=== PATIENT | female | born 1985 | race Hispanic/Latino ===

== ENCOUNTER 2017-12-03 15:27 | Emergency (ER) | payer OTHER, BC ==
[2017-12-03 15:52] VITALS: BP 116/77; PULSE 76; RESP 16; TEMP 98.3; O2SAT 99
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
== END 2017-12-03 19:16 | disposition home or self-care (01) ==
LOC: H.ER 15:27
DX: M54.5 Low back pain (principal); V49.60XA Unspecified car occupant injured in collision with unspecified motor vehicles in traffic accident, initial encounter

== ENCOUNTER 2018-06-21 17:39 | Emergency (ER) | payer BC, OTHER ==
[2018-06-21 17:47] VITALS: BMI 26.1
[2018-06-21 20:12] LABS: BASO # 0.1 K/uL (0.0-0.2); BASO % 0.4 % (0.0-2.0); EOS # 0.1 K/uL (0.0-0.7); EOS % 0.6 % (0.0-4.0); HEMOGLOBIN 12.9 g/dL (12.0-16.0); LYMPH # 3.1 K/uL (1.0-4.3); LYMPH % 19.6 % (20.0-40.0); MEAN CELL VOLUME 92.9 fl (81.0-99.0); MEAN CORPUSCULAR HEMOGLOBIN 30.5 pg (27.0-31.0); MEAN CORPUSCULAR HGB CONC 32.8 g/dL (33.0-37.0); MEAN PLATELET VOLUME 8.4 fl (7.2-11.7); MONO # 0.8 K/uL (0.0-0.8); MONO % 5.3 % (0.0-10.0); NEUT # 11.9 K/uL (1.8-7.0); NEUT % 74.1 % (50.0-75.0); RBC 4.22 Mil/uL (3.80-5.20); RED CELL DISTRIBUTION WIDTH 13.3 % (11.5-14.5)
--- NOTE | 2018-06-21 20:27 | ED PDOC ---
HPI: Skin/Bite Injury Time Seen by Provider: 06/21/18 19:06 Chief Complaint (Nursing): Abnormal Skin Integrity Chief Complaint (Provider): Abnormal Skin Integrity History Per: Patient History/Exam Limitations: no limitations Onset/Duration Of Symptoms: Days (x1 month ) Current Symptoms Are (Timing): Still Present Location Of Injury: Left: Back Quality Of Symptoms: Painful, Swollen Additional Complaint(s): 32 year female with no significant past medical history presents to the ED with left sided abscess. Patient states she began noticing pimple on left side of back 1 month ago. Today it became larger and redness and pain increased. Her friend attempted to pop the pimple and was able to release some pus. Patient reports chills last night, but denies any fever or back sweats. She has not taken any medications for pain. PMD: none provided Past Medical History Reviewed: Historical Data, Nursing Documentation, Vital Signs Vital Signs: Last Vital Signs Temp 99 F 06/21/18 17:44 Pulse 103 H 06/21/18 17:44 Resp 16 06/21/18 17:44 BP 119/77 06/21/18 17:44 Pulse Ox 97 06/21/18 17:44 - Medical History PMH: No Chronic Diseases - Family History Family History: States: Unknown Family Hx - Home Medications Home Medications: Ambulatory Orders Medication Instructions Recorded Ibuprofen [Motrin Tab] 600 mg PO Q8H PRN #20 tab 03/16/14 Ibuprofen [Motrin Tab] 800 mg PO Q6H PRN #20 tab 12/03/17 Clindamycin [Cleocin] 450 mg PO TID 7 Days cap 06/21/18 Ibuprofen [Motrin Tab] 600 mg PO Q6 PRN 7 Days tab 06/21/18 - Allergies Allergies/Adverse Reactions: Allergies Allergy/AdvReac Type Severity Reaction Status Date / Time No Known Allergies Allergy Verified 06/21/18 17:50 Review of Systems ROS Statement: Except As Marked, All Systems Reviewed And Found Negative Constitutional: Positive for: Chills. Negative for: Fever, Sweats Skin: Positive for: Other (abcess on left back) Physical Exam - Reviewed Nursing Documentation Reviewed: Yes Vital Signs Reviewed: Yes - Physical Exam Appears: Positive for: No Acute Distress Eye Exam: Positive for: Normal appearance Back: Positive for: Other (left back with comedone with associated 6 by 3 cm erythema with induration, no fluctuance, and no drainage noted) Extremity: Positive for: Normal ROM (upper and lower). Negative for: Deformity Neurological/Psych: Positive for: Awake, Alert, Oriented (x3) - Laboratory Results Result Diagrams: 06/21/18 20:00 06/21/18 20:00 - ECG O2 Sat by Pulse Oximetry: 97 (RA) Pulse Ox Interpretation: Normal Medical Decision Making Medical Decision Making: Time: 1922 Plan: --BMP --CBC --Blood cultures WBCs 16K, pt afebrile, IV Clindamycin 600mg x 1 ordered. Re-evaluated: HR improved to 76. Pt given return instructions to come back to ER in 2 days for re-evaluation and to use warm compresses 2 - 3 times per day. Return instructions provided. -------- --------- ScribeAttestation: Documented byMargarita Smith, acting as a scribe for Rhonda Goodson PA-C. Provider ScribeAttestation: All medical record entries made by the Scribe were at my direction and personally dictated by me. I have reviewed the chart and agree that the record accurately reflects my personal performance of the history, physical exam, medical decision making, and the department course for this patient. I have also personally directed, reviewed, and agree with the discharge instructions and disposition. Disposition - Clinical Impression Clinical Impression: Abscess - Patient ED Disposition Is Patient to be Admitted: No Counseled Patient/Family Regarding: Studies Performed, Diagnosis, Need For Followup - Disposition Referrals: Amari Sands MD [Medical Doctor] - Disposition: Routine/Home Disposition Time: 23:48 Condition: STABLE Additional Instructions: Use warm compresses on area 2 - 3 days to see if it can soften as there is nothing to drain currently. Take antibiotics as prescribed and complete the full course. Take Ibuprofen or Tylenol for the pain. Return to ER in 2 - 3 days for re-evaluation or sooner if you develop fevers, worsening redness or pain. Prescriptions: Clindamycin [Cleocin] 450 mg PO TID 7 Days cap Ibuprofen [Motrin Tab] 600 mg PO Q6 PRN 7 Days tab PRN Reason: Pain, Moderate (4-7) Instructions: Boil (DC), Cellulitis (Skin Infection), Adult (DC) Forms: [employer] ([place]) Print Language: [place]IZ[place]
[2018-06-21 20:31] LABS: BLOOD UREA NITROGEN 11 mg/dl (7-17); CALCIUM 9.5 mg/dL (8.4-10.2); GFR NON-AFRICAN AMERICAN > 60
[2018-06-21] MEDS ORDERED: Clindamycin 600mg/50ml D5W 600 MG/50 ML VIAL IVPB STA (21:23)
[2018-06-21 23:46] VITALS: BP 108/55; PULSE 77; RESP 18; TEMP 98.3
[2018-06-22 01:40] VITALS: O2SAT 97
== END 2018-06-21 23:48 | disposition home or self-care (01) ==
LOC: H.ER 17:39
DX: L02.212 Cutaneous abscess of back [any part, except buttock and flank] (principal)

== ENCOUNTER 2018-06-24 17:25 | Emergency (ER) | payer BC ==
[2018-06-24 17:25] VITALS: BMI 26.1
[2018-06-24 18:28] VITALS: RESP 18
--- NOTE | 2018-06-24 20:43 | ED PDOC ---
HPI: Wound Care - HPI Time Seen by Provider: 06/24/18 19:22 Chief Complaint (Nursing): Wound Check Chief Complaint (Provider): Abscess on back History Per: Patient Exam Limitations: no limitations Onset/Duration Of Symptoms: Days Location Of Injury: Left: Back Quality Of Symptoms: Painful, Swollen Additional Complaint(s): 32yo female, no significant past medical history comes in for re-evaluation of abscess on her back. Patient was seen in this ED on 06/21 and at that time was noted to have an abscess on her left upper back however, at that time, the abscess was not optimal for an incision and drainage. Patient had bloodwork done, which showed WBC count at 16, and patient was given Clindamycin IV and discharged home with instructions to return in 2-3 days for a reevaluation. She reports subjective fever, chills, and states the pain has not improved. She also reports the abscess has not softened despite using warm compresses; she reports taking Ibuprofen for pain with last dose at 3pm today. No additional complaints. Past Medical History Reviewed: Historical Data, Nursing Documentation, Vital Signs Vital Signs: Last Vital Signs Temp 98.9 F 06/24/18 18:24 Pulse 90 06/24/18 18:24 Resp 18 06/24/18 18:24 BP 158/90 H 06/24/18 18:24 Pulse Ox 99 06/24/18 18:24 - Medical History PMH: No Chronic Diseases - Surgical History Surgical History: No Surg Hx - Family History Family History: States: Unknown Family Hx - Home Medications Home Medications: Ambulatory Orders Medication Instructions Recorded Ibuprofen [Motrin Tab] 600 mg PO Q8H PRN #20 tab 03/16/14 Ibuprofen [Motrin Tab] 800 mg PO Q6H PRN #20 tab 12/03/17 Clindamycin [Cleocin] 450 mg PO TID 7 Days cap 06/21/18 Ibuprofen [Motrin Tab] 600 mg PO Q6 PRN 7 Days tab 06/21/18 - Allergies Allergies/Adverse Reactions: Allergies Allergy/AdvReac Type Severity Reaction Status Date / Time No Known Allergies Allergy Verified 06/21/18 17:50 Review of Systems ROS Statement: Except As Marked, All Systems Reviewed And Found Negative Constitutional: Positive for: Fever, Chills Musculoskeletal: Positive for: Back Pain Skin: Positive for: Other (abscess left upper back) Physical Exam - Reviewed Nursing Documentation Reviewed: Yes Vital Signs Reviewed: Yes - Physical Exam Appears: Positive for: Non-toxic, Uncomfortable Head Exam: Positive for: ATRAUMATIC, NORMAL INSPECTION, NORMOCEPHALIC Skin: Positive for: Warm, Dry. Negative for: Rash Eye Exam: Positive for: Normal appearance Neck: Positive for: Supple Cardiovascular/Chest: Positive for: Regular Rate, Rhythm. Negative for: Tachycardia Respiratory: Positive for: Normal Breath Sounds. Negative for: Respiratory Distress Back: Positive for: Other (9x3cm area on left upper back with induration, erythema and edema with central comedone; + tenderness to palpation; - drainage) Neurological/Psych: Positive for: Awake, Alert, Oriented (x 3) - Laboratory Results Result Diagrams: 06/24/18 20:45 06/24/18 20:45 - ECG O2 Sat by Pulse Oximetry: 99 (RA) Pulse Ox Interpretation: Normal Medical Decision Making Medical Decision [place] female with abscess on left upper back Plan: -- CBC -- BMP -- Blood cultures 2148 WBC trending down to 12.5 from 16 on 06/21 Patient advised to complete full course of antibiotics, also continue with warm compresses to area. Return instructions given, advised to follow up with PMD for further evaluation. Scribe Attestation: Documented by Angely Dodd acting as a scribe for STANFORD Alvarado. Provider Scribe Attestation: All medical record entries made by the Scribe were at my direction and personally dictated by me. I have reviewed the chart and agree that the record accurately reflects my personal performance of the history, physical exam, medical decision making, and the department course for this patient. I have also personally directed, reviewed, and agree with the discharge instructions and disposition. Disposition - Clinical Impression Clinical Impression: Encounter for wound re-check, Cellulitis of back - Disposition Referrals: [facility] [Outside] Disposition: Routine/Home Disposition Time: 21:49 Condition: STABLE Additional Instructions: Return to ER if you develop persistent fevers or worsening redness/drainage. Otherwise, Continue to use warm compresses and complete course of antibiotics as you appear to be responding. Continue to take Tylenol or Ibuprofen for pain. Instructions: Cellulitis (Skin Infection), Adult (DC) Forms: [employer] (Urdu) Print Language: ARMENIAN
[2018-06-24 20:54] LABS: BASO % 0.4 % (0.0-2.0); EOS # 0.1 K/uL (0.0-0.7); EOS % 0.8 % (0.0-4.0); HEMOGLOBIN 12.3 g/dL (12.0-16.0); LYMPH # 2.8 K/uL (1.0-4.3); LYMPH % 22.7 % (20.0-40.0); MEAN CELL VOLUME 94.1 fl (81.0-99.0); MEAN CORPUSCULAR HGB CONC 32.9 g/dL (33.0-37.0); MEAN PLATELET VOLUME 8.1 fl (7.2-11.7); MONO # 0.5 K/uL (0.0-0.8); MONO % 3.8 % (0.0-10.0); NEUT # 9.1 K/uL (1.8-7.0); NEUT % 72.3 % (50.0-75.0); NRBC % 0.1 % (0.0-0.0); RBC 3.96 Mil/uL (3.80-5.20); RED CELL DISTRIBUTION WIDTH 13.4 % (11.5-14.5); WHITE BLOOD COUNT 12.5 K/uL (4.8-10.8)
[2018-06-24 21:00] LABS: BLOOD UREA NITROGEN 11 mg/dl (7-17); CALCIUM 9.5 mg/dL (8.4-10.2); GFR NON-AFRICAN AMERICAN > 60
[2018-06-24 22:45] VITALS: BP 122/78; PULSE 78; TEMP 98
[2018-06-25 02:11] VITALS: O2SAT 99
== END 2018-06-24 22:25 | disposition home or self-care (01) ==
LOC: H.ER 17:25
DX: L02.212 Cutaneous abscess of back [any part, except buttock and flank] (principal)